=== PATIENT | female | born 1950 | race Caucasian/White ===

== ENCOUNTER → 2017-12-31 | Outpatient (CLI) | payer OTHER | END | disposition home or self-care (01) | LOC: RAH 12:23 | PROVIDERS: ATTEND Internal Medicine Critical Care Medicine | DX: R92.8 Other abnormal and inconclusive findings on diagnostic imaging of breast (principal) | CPT/HCPCS: 76641; 77065 ==

== ENCOUNTER → 2018-06-05 | Outpatient (CLI) | payer OTHER | END | disposition home or self-care (01) | LOC: RAH 14:03 | PROVIDERS: ATTEND Internal Medicine Critical Care Medicine | DX: N63.21 Unspecified lump in the left breast, upper outer quadrant (principal) | CPT/HCPCS: 76641; 77065 ==

== ENCOUNTER → 2019-10-22 | Outpatient (CLI) | payer OTHER | END | disposition home or self-care (01) | LOC: RAH 09:18 | PROVIDERS: ATTEND Surgery | DX: R92.2 Inconclusive mammogram (principal) | CPT/HCPCS: 77066 ==

== ENCOUNTER → 2020-10-21 | Outpatient (CLI) | payer OTHER | END | disposition home or self-care (01) | LOC: RAH 09:00 | PROVIDERS: ATTEND Internal Medicine | DX: Z85.3 Personal history of malignant neoplasm of breast (principal) | CPT/HCPCS: 77066 ==

== ENCOUNTER → 2021-11-01 | Outpatient (CLI) | payer OTHER | END | disposition home or self-care (01) | LOC: RAH 12:27 | PROVIDERS: ATTEND Internal Medicine Critical Care Medicine | DX: R92.2 Inconclusive mammogram (principal); Z85.3 Personal history of malignant neoplasm of breast; Z98.890 Other specified postprocedural states | CPT/HCPCS: 77066 ==

== ENCOUNTER → 2022-11-02 | Outpatient (CLI) | payer MEDICARE, OTHER | END | disposition home or self-care (01) | LOC: RAH 08:29 | PROVIDERS: ATTEND Internal Medicine | DX: C50.112 Malignant neoplasm of central portion of left female breast (principal) | CPT/HCPCS: 77066 ==

== ENCOUNTER → 2023-01-28 | Outpatient (CLI) | payer MEDICARE ==
[2023-01-28 12:24] LABS: BASOPHILS # (AUTO) 0.06 K/uL (0.00-0.20); BASOPHILS % (AUTO) 1.3 % (0.0-5.0); EOSINOPHILS # (AUTO) 0.39 K/uL (0.00-0.70); EOSINOPHILS % (AUTO) 8.6 % (0.0-8.0); HEMATOCRIT 46.6 % (36-48); IMMATURE GRANULOCYTE ABSOLUTE 0.01 K/uL (0-1); LYMPHOCYTES # (AUTO) 1.5 K/uL (1.0-4.8); LYMPHOCYTES % (AUTO) 32.3 % (21.0-51.0); MEAN CORPUSCULAR HEMOGLOBIN 29.2 pg (27.0-33.0); MEAN CORPUSCULAR HGB CONC 31.8 g/dL (32.0-36.0); MEAN CORPUSCULAR VOLUME 92.1 fL (79-99); MONOCYTES # (AUTO) 0.4 K/uL (0.1-1.0); MONOCYTES % (AUTO) 8.1 % (3.0-13.0); NEUTROPHILS # (AUTO) 2.3 K/uL (1.8-7.7); NEUTROPHILS % (AUTO) 49.5 % (40.0-77.0); PLATELET COUNT (AUTO) 171 K/uL (130-400); RED BLOOD CELL COUNT(AUTO) 5.06 MIL/uL (4.00-5.50); RED CELL DISTRIBUTION WIDTH 13.3 % (11.0-15.5); WHITE BLOOD COUNT (AUTO) 4.6 K/uL (4.8-10.8)
[2023-01-28 12:50] LABS: ALBUMIN 3.9 g/dL (3.5-5.0); BILIRUBIN,TOTAL 0.4 mg/dL (0.2-1.0); CREATININE 0.9 mg/dL (0.5-1.5); POTASSIUM 3.9 mmol/L (3.5-5.1)
== END | disposition home or self-care (01) ==
LOC: LAB 11:16
PROVIDERS: ATTEND Internal Medicine Cardiovascular Disease
DX: R07.9 Chest pain, unspecified (principal)
CPT/HCPCS: 36415; 80053; 85025

== ENCOUNTER → 2023-02-05 | Outpatient (CLI) | payer MEDICARE ==
[~2023-02-05] MED LIST: REGADENOSON 0.4 MG/5 ML PF SYG IVP ONE
== END | disposition home or self-care (01) ==
LOC: SHCH 08:25
PROVIDERS: ATTEND Internal Medicine Cardiovascular Disease
DX: R07.9 Chest pain, unspecified (principal)
CPT/HCPCS: 78452; 96374; 93017; J2785; A9500 ×2